=== PATIENT | male | born 1930 | race Caucasian/White ===

== ENCOUNTER 2017-01-18 14:39 | Emergency (ER) | payer MEDICARE ==
--- NOTE | 2017-01-20 19:25 | ER ---
ADMIT: 01/18/2017 RM/LOC: ER [facility] MR#: [id number] [id number] [place], [place] [id number] ABDIFATAH KENNEDY Moustapha [address] [id number] Emergency Room Report SEX: M AGE: 86 : 1930 DATE: 01/18/2017 TIME: 1439 hours. please refer to my T-sheet for complete H and P. Briefly, the patient is an 86-year-old, [facility], they said they noticed his pulse was low and they sent him directly over here. He has no symptoms. The patient is a little bit frustrated, he says he feels fine, he has had problems like this in the past and once he says he is not going to stay when he gets in my ER. His daughter is here with him. PHYSICAL EXAMINATION: VITAL SIGNS: Blood pressure 142/49, pulse 40, respirations 16, temp 98.2, saturating 99%. GENERAL: No acute distress. HEENT: Grossly normal. LUNGS: Clear. HEART: Regular. Bradycardic with extrasystoles felt. ABDOMEN: Soft. EXTREMITIES: No cyanosis, clubbing, or edema. SKIN: No rash. EMERGENCY ROOM COURSE: His chest x-ray showed no acute disease. CBC was normal except platelets of 138. T4 and TSH were normal. Troponin was negative. Chemistry was normal. UA normal. EKG was sinus rhythm, rate 91, and a bigeminal pattern. When you palpate his pulse, he has a strong pulse with a sinus beat and a weaker fainter pulse with the PVC that is in bigeminal pattern. I called our delimer to discuss with him and the patient himself. The patient was adamant and he wanted to go home. I wanted to put a 40-hour Holter on here except he would have to come back here to have it done and he did not want to do that. He would call his delimer in [place] and his primary they would do all workup over there. He feels fine and wants go home. The daughter was here during our conversation. ASSESSMENT: 1. Sinus bradycardia with multiple premature ventricular contractions in a bigeminal pattern. 2. Asymptomatic with this. PLAN: See his delimer, call today in [place]. I recommended a 48-hour Holter monitor. Return if worse. Continue his current care. Manny Erikcson MD/ garth JOB #: [id number] CC: ADMIT: 01/18/2017 RM/LOC: [facility] MR#: [id number] [address] [place] [id number] ABDIFATAH KENNEDY [address] [place] [address] Emergency Room Report SEX: M AGE: 86 : 1930 Manny Erickson MD, Attending Physician
== END 2017-01-18 16:05 | disposition home or self-care (01) ==
LOC: ER 14:39
DX: R00.1 Bradycardia, unspecified (principal); E11.9 Type 2 diabetes mellitus without complications; I10 Essential (primary) hypertension; E78.5 Hyperlipidemia, unspecified; F17.210 Nicotine dependence, cigarettes, uncomplicated; Z88.8 Allergy status to other drugs, medicaments and biological substances; Z79.82 Long term (current) use of aspirin; Z79.899 Other long term (current) drug therapy